=== PATIENT | female | born 1960 | race Caucasian/White ===

== ENCOUNTER → 2024-07-05 | Outpatient (REF) | payer OTHER ==
[2024-07-05 22:48] LABS: RSV AMPLIFICATION NEGATIVE (NEGATIVE)
== END ==
LOC: M LAB REF 17:15
PROVIDERS: ATTEND Internal Medicine
DX: J01.90 Acute sinusitis, unspecified (principal)

== ENCOUNTER 2024-12-23 14:41 | Emergency (ER) | payer MEDICAID, OTHER ==
[2024-12-23] MEDS: ACETAMINOPHEN 500 MG TAB PO ONE (15:24)
[2024-12-23] MEDS ORDERED: TOPI-257 PO (16:37)
[2024-12-23] MEDS ORDERED: TOPI50CA PO (16:37)
[2024-12-23] MEDS ORDERED: LEVO25TA5 PO (16:37)
[2024-12-23] MEDS ORDERED: ATOR1TAB21 PO (16:37)
[2024-12-23 18:01] VITALS: BP 168/75; TEMP 97; O2SAT 98
[2024-12-24] MEDS ORDERED: OXYC-517 PO (11:22)
== END 2024-12-23 18:22 | disposition home or self-care (01) ==
LOC: M ED 14:41
DX: S82.041A Displaced comminuted fracture of right patella, initial encounter for closed fracture (principal); W01.0XXA Fall on same level from slipping, tripping and stumbling without subsequent striking against object, initial encounter; Y92.89 Other specified places as the place of occurrence of the external cause; Y93.9 Activity, unspecified; Y99.9 Unspecified external cause status; E78.5 Hyperlipidemia, unspecified; E03.9 Hypothyroidism, unspecified; M51.360 Other intervertebral disc degeneration, lumbar region with discogenic back pain only; M50.30 Other cervical disc degeneration, unspecified cervical region; M43.22 Fusion of spine, cervical region; Z88.5 Allergy status to narcotic agent; Z91.030 Bee allergy status

== ENCOUNTER → 2025-01-14 | Outpatient (CLI) | payer OTHER ==
[~2025-01-14] MED LIST: ATOR1TAB21 PO; LEVO25TA5 PO; OXYC-517 PO; TOPI-257 PO; TOPI50CA PO
== END ==
LOC: M SOG 07:29
PROVIDERS: ATTEND Orthopaedic Surgery
DX: S82.001A Unspecified fracture of right patella, initial encounter for closed fracture (principal); M25.531 Pain in right wrist; W18.30XA Fall on same level, unspecified, initial encounter; Y92.009 Unspecified place in unspecified non-institutional (private) residence as the place of occurrence of the external cause

== ENCOUNTER 2025-01-17 10:40 | Outpatient (RCR) | payer OTHER | END 2025-01-18 | LOC: M PT 10:40 | PROVIDERS: ATTEND Orthopaedic Surgery | DX: S82.001A Unspecified fracture of right patella, initial encounter for closed fracture (principal); X58.XXXA Exposure to other specified factors, initial encounter; Y92.9 Unspecified place or not applicable ==

== ENCOUNTER 2025-02-05 08:24 | Outpatient (RCR) | payer OTHER ==
[~2025-02-05 08:24] MED LIST changes: +CYAN500T14 PO; +RA N1TAB PO; +VITA100093 PO
[2025-02-13] MEDS ORDERED: CALCTAB89 PO (09:50)
== END 2025-02-17 ==
LOC: M PT 08:24
PROVIDERS: ATTEND Orthopaedic Surgery
DX: S82.001A Unspecified fracture of right patella, initial encounter for closed fracture (principal); X58.XXXA Exposure to other specified factors, initial encounter; Y92.9 Unspecified place or not applicable; Y93.9 Activity, unspecified; Y99.9 Unspecified external cause status

== ENCOUNTER 2025-02-13 09:26 | Day surgery (SDC) | payer OTHER ==
[~2025-02-13] VITALS: Ht 162.6 cm; Wt 84.8 kg
[~2025-02-13 09:26] MED LIST changes: +LIDOCAINE 2% 100 MG/5 ML SDV (FOR ANES.) As Ordered ONE
[2025-02-13] MEDS ORDERED: CALCTAB89 PO (09:50)
[2025-02-13 11:45] VITALS: BP 179/83; TEMP 98; O2SAT 98
== END 2025-02-13 11:58 | disposition home or self-care (01) ==
LOC: M OPP 09:26
PROVIDERS: ATTEND Surgery
DX: Z12.11 Encounter for screening for malignant neoplasm of colon (principal); D12.6 Benign neoplasm of colon, unspecified; K21.00 Gastro-esophageal reflux disease with esophagitis, without bleeding; K29.50 Unspecified chronic gastritis without bleeding; K26.9 Duodenal ulcer, unspecified as acute or chronic, without hemorrhage or perforation; R10.13 Epigastric pain; Z91.030 Bee allergy status; Z88.5 Allergy status to narcotic agent; Z79.899 Other long term (current) drug therapy; Z87.891 Personal history of nicotine dependence
CPT/HCPCS: 43239; 45385; 88305; J3010

== ENCOUNTER 2025-02-19 08:28 | Outpatient (RCR) | payer OTHER ==
[~2025-02-19 08:28] MED LIST changes: +CALCTAB89 PO; -LIDOCAINE 2% 100 MG/5 ML SDV (FOR ANES.) As Ordered ONE
== END 2025-03-20 ==
LOC: M PT 08:28
PROVIDERS: ATTEND Orthopaedic Surgery
DX: S82.001D Unspecified fracture of right patella, subsequent encounter for closed fracture with routine healing (principal); W18.30XD Fall on same level, unspecified, subsequent encounter; Y92.009 Unspecified place in unspecified non-institutional (private) residence as the place of occurrence of the external cause